=== PATIENT | female | born 1945 | race Caucasian/White ===

== ENCOUNTER 2016-05-09 10:35 | Emergency (ER) | payer OTHER, MEDICARE ==
--- NOTE | 2016-05-09 10:55 | EDPHY ---
H & P Stated Complaint: knee gave out, fell from standing position. Hit head and knee. Time Seen by Provider: 05/09/16 10:55 HPI/ROS: CHIEF COMPLAINT: Facial trauma HISTORY OF PRESENT ILLNESS: The patient presents to the ED with complaints of facial trauma, right periorbital pain and swelling after mechanical fall. Patient tripped while walking. She fell onto her right face. She did not lose consciousness. She does not take anticoagulants. She denies any neck pain, back pain, chest pain, difficulty breathing, focal numbness/weakness or additional traumatic complaints. REVIEW OF SYSTEMS: A comprehensive 10 point review of systems is otherwise negative aside from elements mentioned in the history of present illness. Source: Patient Exam Limitations: No limitations - Personal History Current Tetanus/Diphtheria Vaccine: Unsure Current Tetanus Diphtheria and Acellular Pertussis (TDAP): Unsure - Medical/Surgical History Hx Asthma: No Hx Chronic Respiratory Disease: No Hx Diabetes: No Hx Cardiac Disease: No Hx Renal Disease: No Hx Cirrhosis: No Hx Alcoholism: No Hx HIV/AIDS: No Hx Splenectomy or Spleen Trauma: No Other PMH: kidney stones - Social History Smoking Status: Never smoked - Physical Exam Exam: General Appearance: Alert, no distress Head: Soft tissue swelling and bony tenderness noted to the right periorbital tissues Eyes: Pupils equal, round, reactive, no evidence of entrapment ENT, Mouth: No hemotympanum, no oral trauma Neck: Nontender, trachea midline Respiratory: No chest wall tender, subcutaneous air, lungs clear bilaterally Cardiovascular: Regular rate and rhythm Abdomen: Abdomen is soft and nontender, pelvis stable Skin: No lacerations, No abrasion Back: No midline T/L/S pain Extremities: Nontender, full range of motion Neurological: A&Ox3, normal motor function, normal sensory exam Constitutional: Initial Vital Signs Temperature (C) 36.3 C 05/09/16 10:38 Heart Rate 65 05/09/16 10:38 Blood Pressure 198/95 H 05/09/16 10:38 O2 Delivery Mode Room Air Allergies/Adverse Reactions: No Known Allergies Allergy (Unverified 05/09/16 10:37) Home Medications: Medication Instructions Recorded Requip 05/09/16 Medical Decision Making - Diagnostics Imaging: CT head without contrast: Images reviewed by myself and discussed with radiologist Dr. Arnie Fofana. Negative for acute fracture or intracranial hemorrhage. ED Course/Re-evaluation: The patient presents to the ED with right facial pain and swelling as well as complaints of blurry vision after a mechanical fall. The patient is noted to have a GCS of 15. The patient does have evidence of bony tenderness on exam and given her acute complaints of blurry vision, a noncontrast head CT scan was ordered to exclude intracranial hemorrhage and fracture. Fortunately, the patient's CT scan demonstrates no evidence of intracranial hemorrhage or acute fracture. The patient will be discharged home with a normal neurologic examination without evidence of any acute abnormalities on her head CT scan. She is advised to ice the area of swelling. She can use Tylenol and ibuprofen as needed for pain. Differential Diagnosis: Differential diagnosis considered includes intracranial hemorrhage, skull fracture, facial bone fracture, ocular entrapment Departure - Departure Disposition: Home, Routine, Self-Care Clinical Impression: Facial contusion Condition: Good Instructions: Contusion in Adults (ED) Additional Instructions: 1. Please ice area of swelling 20-30 minutes at a time 4 to 5 times a day for the next 3 days. 2. Tylenol and ibuprofen as needed for pain. 3. Please return to the ED for markedly worsening symptoms or other concerns. Referrals: Mahsa Duffy, [employer] SALES [employer]SULTANT [Primary Care Provider] - As per Instructions
[2016-05-09 12:18] VITALS: BP 179/93; PULSE 63; RESP 18; TEMP 98.4; O2SAT 93
== END 2016-05-09 12:18 | disposition home or self-care (01) ==
DX: S00.83XA Contusion of other part of head, initial encounter (principal); W01.0XXA Fall on same level from slipping, tripping and stumbling without subsequent striking against object, initial encounter; Y99.8 Other external cause status; Y93.01 Activity, walking, marching and hiking

== ENCOUNTER 2016-12-02 15:07 | Emergency (ER) | payer OTHER, MEDICARE ==
[2016-12-02 15:24] VITALS: TEMP 97.9
[2016-12-02] MEDS ORDERED: NS 500 ML IV ONE (15:40)
--- NOTE | 2016-12-02 15:45 | EDPHY ---
H & P Time Seen by Provider: 12/02/16 15:27 HPI/ROS: HPI Right lower abdominal pain. 71-year-old female by private vehicle with her . This patient complains of right mid and right lower quadrant abdominal pain which she describes as coming on in shooting waves and as a burning and itching sensation. She reports that is similar to her shingles in the past but on the right side versus the left side where she has had shingles in the past. She was sent down from the office of her primary care physician for further evaluation. She has not had any vomiting. She does have a history of gastric bypass surgery. Denies fever. No diarrhea. She denies urinary complaints. She describes the pain as being at a low level consistently and then having waves of shooting sharp pain intermittently. She denies rash. ROS: Constitutional: No fever, no chills. No weakness. Eyes: No discharge. No changes in vision. ENT: No sore throat. No nasal congestion or rhinorrhea. Respiratory: No cough. No shortness of breath. Cardiac: No chest pain, no palpitations. Gastrointestinal: As above. Genitourinary: No hematuria. No dysuria or increased frequency with urination. Musculoskeletal: No back pain. No neck pain. No myalgias or arthralgias. Skin: No rashes. Neurological: No headache. No focal weakness or altered sensation. Past medical history: Kidney stones, gastric bypass surgery, restless leg syndrome. She takes Requip for this. Social history: Nonsmoker. No alcohol. Here with her . Physical Exam: General Appearance: Alert, no distress. She appears comfortable at this time. This patient is responding to questions appropriately and in full sentences. This patient appears well-hydrated and well-nourished. Eyes: Pupils equal and round no pallor or injection. No lid edema, erythema or injection. Respiratory: There are no retractions, lungs are clear to auscultation with good air movement bilaterally. Cardiovascular: Regular rate and rhythm. No murmur. Gastrointestinal: Abdomen is soft with right lower quadrant tenderness on palpation which is mild, no masses, bowel sounds normal. No focal tenderness at McBurney's point. No Siegel sign. Neurological: Motor sensory function is grossly intact. Cranial nerves are normal. Gait is normal. Skin: Warm and dry, no rashes. Musculoskeletal: Neck is supple and nontender. Extremities are symmetrical. All joints range without pain or impingement. Psychiatric: No agitation. No depression. Database: EKG: Imaging: CT scan of abdomen and pelvis with IV contrast: No evidence of kidney stones. The appendix is well visualized and is normal. Gall stones are present there is no evidence of gallbladder pathology. The ovaries were not well visualized. No other significant findings. Results were discussed with staff radiologist Dr. Aniket Ramirez. Pelvic ultrasound: The uterus is unremarkable. The right ovary is well visualized. Normal blood flow. No pathology. Results were discussed with staff radiologist Dr. Aniket Ramirez. Procedures: Emergency department course: IV placed. She was placed on a monitor. She was started on IV normal saline with 500 cc to be given over the next hour. She declines pain medication at this time. She consents to CT imaging to evaluate for possible appendicitis as well as ovarian pathology. Urinalysis obtained. 4:35 p.m., patient given 0.5 mg of IV hydromorphone for pain. Patient is complaining of pain that is shooting, sharp and superficial on comes on intense waves just under the surface of her skin. This is consistent with a zoster outbreak. Results of blood work and urinalysis discussed with her and her . The urinalysis was positive for nitrate but otherwise unremarkable. She does not have any fever or urinary tract infection complaints. 5:45 p.m., patient re-evaluated. Results of her CT scan discussed with her and her . She again is having knee shooting pains as described above. She was given 30 mg of IV Toradol. She has no contraindications to NSAIDs. No peptic ulcer disease. No renal dysfunction. We will obtain a pelvic ultrasound to see if we can better visualize her pelvic anatomy. Her repeat abdominal exam at this time she is soft, nontender nondistended. If the ultrasound study is unremarkable I will treat her for shingles. She endorses this plan. 6:50 p.m., adults of ultrasound discussed with the patient. No evidence of rash on re-evaluation. She appears comfortable at this time. Plan will be to treat her for zoster. She was given 300 mg of oral gabapentin. She was also given 60 mg of oral prednisone. Her primary care physician has already called in a prescription for gabapentin for treatment of neuropathic pain from shingles. I will prescribe her prednisone and Valtrex. Plan will be to have her follow up with her primary care physician tomorrow for re-evaluation. The patient does feel comfortable going home with her . She can easily return to the emergency department if needed. Strict return to emergency department precautions were discussed with her and her . All of their questions were answered. She was discharged in good condition. Differential Diagnosis: The differential diagnosis on this patient includes but is not limited to shingles. Appendicitis, volvulus, bowel obstruction, ovarian torsion, diverticulitis, colitis, cholecystitis unlikely. This represents a partial list of diagnoses considered. These considerations are based on history, physical exam, past history, reassessment and diagnostic testing. Smoking Status: Never smoked Constitutional: Initial Vital Signs Temperature (C) 36.6 C 12/02/16 15:22 Heart Rate 68 12/02/16 15:22 Respiratory Rate 18 12/02/16 15:22 Blood Pressure 184/83 H 12/02/16 15:22 O2 Sat (%) 96 12/02/16 15:22 O2 Delivery Mode Room Air O2 (L/minute) 2 Allergies/Adverse Reactions: No Known Allergies Allergy (Unverified 05/09/16 10:37) Home Medications: Medication Instructions Recorded Requip 05/09/16 Valacyclovir HCl [Valtrex] 1,000 mg PO TID #21 tab 12/02/16 predniSONE [prednisone 20mg (RX)] 60 mg PO DAILY #9 tab 12/02/16 Medical Decision Making - Diagnostics Imaging Results: Imaging Impressions Abdomen CT 12/02/16 15:41 Impression: 1. Normal appendix and mild constipation. 2. No acute inflammatory process, lymphadenopathy or mass to explain symptomatology. 3. Normal caliber mildly atherosclerotic abdominal aorta. No aneurysm. 4. Probably benign 5-mm ground glass left lower lobe pulmonary nodule. Recommend follow-up noncontrast low dose chest CT in 12 months to assure benignity. Findings discussed with Emergency Department physician, Dr. Alicia Gupta on December 02, 2016 at 5:38 p.m. Pelvic/Renal Ultrasound 12/02/16 18:05 Impression: 1. Normal right ovary. No ovarian torsion, cyst or free fluid. 2. Left ovary not visualized. 3. Normal uterus. Findings discussed with Emergency Department physician, Alicia Gupta MD at 12/02/2016 18:50. - Data Points Laboratory Results: Laboratory Results 12/02/16 15:55 12/02/16 15:55 12/02/16 12/02/16 12/02/16 15:55 15:55 15:35 WBC 8.10 10^3/uL 10^3/uL (3.80-9.50) RBC 4.40 10^6/uL 10^6/uL (4.18-5.33) Hgb 13.1 g/dL g/dL (12.6-16.3) Hct 40.6 % % (38.0-47.0) MCV 92.3 fL fL (81.5-99.8) MCH 29.8 pg pg (27.9-34.1) MCHC 32.3 g/dL L g/dL (32.4-36.7) RDW 14.5 % % (11.5-15.2) Plt Count 314 10^3/uL 10^3/uL (150-400) MPV 9.8 fL fL (8.7-11.7) Neut % (Auto) 52.2 % % (39.3-74.2) Lymph % (Auto) 34.6 % % (15.0-45.0) [place] % (Auto) 9.4 % % (4.5-13.0) Eos % (Auto) 3.2 % % (0.6-7.6) Baso % (Auto) 0.4 % % (0.3-1.7) Nucleat RBC Rel Count 0.0 % % (0.0-0.2) Absolute Neuts (auto) 4.23 10^3/uL 10^3/uL (1.70-6.50) Absolute Lymphs (auto) 2.80 10^3/uL 10^3/uL (1.00-3.00) Absolute Monos (auto) 0.76 10^3/uL 10^3/uL (0.30-0.80) Absolute Eos (auto) 0.26 10^3/uL 10^3/uL (0.03-0.40) Absolute Basos (auto) 0.03 10^3/uL 10^3/uL (0.02-0.10) Absolute Nucleated RBC 0.00 10^3/uL 10^3/uL (0-0.01) Immature Gran % 0.2 % % (0.0-1.1) Immature Gran # 0.02 10^3/uL 10^3/uL (0.00-0.10) Sodium 139 mEq/L mEq/L (134-144) Potassium 4.2 mEq/L mEq/L (3.5-5.2) Chloride 105 mEq/L mEq/L (97-110) Carbon Dioxide 23 mEq/l mEq/l (22-31) Anion Gap 11 mEq/L mEq/L (8-16) BUN 21 mg/dL mg/dL (7-23) Creatinine 0.8 mg/dL mg/dL (0.6-1.0) Estimated GFR > 60 Glucose 77 mg/dL mg/dL (70-100) Calcium 9.0 mg/dL mg/dL (8.5-10.4) Total Bilirubin 0.7 mg/dL mg/dL (0.1-1.4) Conjugated Bilirubin 0.5 mg/dL mg/dL (0.0-0.5) Unconjugated Bilirubin 0.2 mg/dL mg/dL (0.0-1.1) AST 18 IU/L IU/L (14-46) ALT 33 IU/L IU/L (9-52) Alkaline Phosphatase 84 IU/L IU/L (38-126) Total Protein 7.0 g/dL g/dL (6.3-8.2) Albumin 3.8 g/dL g/dL (3.5-5.0) Lipase 176 IU/L IU/L (23-300) Urine Color YELLOW Urine Appearance CLOUDY Urine pH 6.0 (5.0-7.5) Ur Specific [place] 1.025 (1.002-1.030) Urine Protein NEGATIVE (NEGATIVE) Urine Ketones NEGATIVE (NEGATIVE) Urine Blood NEGATIVE (NEGATIVE) Urine Nitrate POSITIVE H (NEGATIVE) Urine Bilirubin NEGATIVE (NEGATIVE) Urine Urobilinogen 0.2 EU EU (0.2-1.0) Ur Leukocyte Esterase NEGATIVE (NEGATIVE) Urine RBC NONE SEEN /hpf /hpf (0-3) Urine WBC 1-3 /hpf /hpf (0-3) Ur Epithelial Cells TRACE /lpf /lpf (NONE-1+) Urine Bacteria 4+ /hpf H /hpf (NONE SEEN) Urine Glucose NEGATIVE (NEGATIVE) Medications Given: Discontinued Medications Gabapentin (Neurontin) 300 mg PO EDNOW ONE Stop: 12/02/16 18:51 Last Admin: 12/02/16 19:02 Dose: 300 mg Hydromorphone HCl (Dilaudid) 0.5 mg IVP EDNOW ONE Stop: 12/02/16 16:43 Last Admin: 12/02/16 16:43 Dose: 0.5 mg Sodium Chloride (Ns) 500 mls @ 0 mls/hr IV EDNOW ONE; Wide Open PRN Reason: Protocol Stop: 12/02/16 15:41 Last Admin: 12/02/16 16:11 Dose: 500 mls Ketorolac Tromethamine (Toradol) 30 mg IVP EDNOW ONE Stop: 12/02/16 18:06 Last Admin: 12/02/16 18:09 Dose: 30 mg Ondansetron HCl (Zofran) 4 mg IVP EDNOW ONE Stop: 12/02/16 16:38 Last Admin: 12/02/16 16:42 Dose: 4 mg Prednisone (Prednisone) 60 mg PO EDNOW ONE Stop: 12/02/16 18:52 Last Admin: 12/02/16 19:02 Dose: 60 mg Departure - Departure Disposition: Home, Routine, Self-Care Clinical Impression: Abdominal pain, Possible shingles Condition: Good Instructions: Shingles (ED), Abdominal Pain (ED) Additional Instructions: Read and follow provided instructions. Follow-up with your primary care physician tomorrow for re-evaluation. They will have access to the tests we have done here tonight. I will start you on a short course of prednisone. Ask your primary care physician to continue you on a more prolonged course of prednisone with a taper as needed. Take medication as prescribed. Ibuprofen dosin mg every 6 hours with meals for the next 3 days only. Return to the emergency department for worsening pain, fever, vomiting, blood in stool or other serious concerns. Referrals: Mahsa Duffy TELEPHONE MECHANIC [Primary Care Provider] - As per Instructions Prescriptions: predniSONE [prednisone 20mg (RX)] 60 mg PO DAILY #9 tab Valacyclovir HCl [Valtrex] 1,000 mg PO TID #21 tab
[2016-12-02] MEDS ORDERED: IOPAMIDOL (ISOVUE-300) 100 ML BTL ONE (15:47)
[2016-12-02 15:57] LABS: COLOR YELLOW; LEUKOCYTE ESTERASE,URINE NEGATIVE (NEGATIVE); NITRITE,URINE POSITIVE (NEGATIVE)
[2016-12-02 16:04] LABS: % IMMATURE GRANULYOCYTES 0.2 % (0.0-1.1); ABSOLUTE IMMATURE GRANULOCYTES 0.02 10^3/uL (0.00-0.10); ADD DIFF? NO; ADD MORPH? NO; ADD SCAN? NO; ATYPICAL LYMPHOCYTE FLAG 0 (0-99); FRAGMENT RBC FLAG 0 (0-99); HEMATOCRIT 40.6 % (38.0-47.0); HEMOGLOBIN 13.1 g/dL (12.6-16.3); LEFT SHIFT FLG 0 (0-99); LIPEMIA HEMOLYSIS FLAG 80 (0-99); MEAN CELL HEMOGLOBIN 29.8 pg (27.9-34.1); MEAN CELL HEMOGLOBIN CONCENTR. 32.3 g/dL (32.4-36.7); MEAN CELL VOLUME 92.3 fL (81.5-99.8); MEAN PLATELET VOLUME 9.8 fL (8.7-11.7); PLATELET CLUMPS FLAG 0 (0-99); PLATELET COUNT 314 10^3/uL (150-400); RED CELL DISTRIBUTION WIDTH 14.5 % (11.5-15.2)
[2016-12-02 16:19] LABS: BACTERIA 4+ /hpf (NONE SEEN); RBC,URINE NONE SEEN /hpf (0-3)
[2016-12-02 16:20] LABS: ALANINE AMINOTRANSFERASE 33 IU/L (9-52); ALBUMIN 3.8 g/dL (3.5-5.0); ALKALINE PHOSPHATASE 84 IU/L (38-126); ANION GAP 11 mEq/L (8-16); ASPARTATE AMINOTRANSFERASE 18 IU/L (14-46); BILIRUBIN,TOTAL 0.7 mg/dL (0.1-1.4); BILIRUBIN-CONJUGATED 0.5 mg/dL (0.0-0.5); BILIRUBIN-UNCONJUGATED 0.2 mg/dL (0.0-1.1); CARBON DIOXIDE 23 mEq/l (22-31); CHLORIDE 105 mEq/L (97-110); CREATININE 0.8 mg/dL (0.6-1.0); GLOMERULAR FILTRATION RATE > 60; GLUCOSE 77 mg/dL (70-100); POTASSIUM 4.2 mEq/L (3.5-5.2); SODIUM 139 mEq/L (134-144)
[2016-12-02] MEDS ORDERED: ONDANSETRON 4 MG/2 ML VIAL IVP ONE (16:37)
[2016-12-02] MEDS ORDERED: HYDROmorphONE/DILAUDID 1 MG/ML INJ ONE (16:38)
[2016-12-02] MEDS ORDERED: HYDROmorphONE/DILAUDID 1 MG/ML INJ IVP ONE (16:42)
[2016-12-02] MEDS ORDERED: KETOROLAC 30 MG/1 ML SDV IVP ONE (18:05)
[2016-12-02] MEDS ORDERED: KETOROLAC 30 MG/1 ML SDV ONE (18:05)
[2016-12-02] MEDS ORDERED: GABAPENTIN 300 MG CAP PO ONE (18:50)
[2016-12-02] MEDS ORDERED: predniSONE 20 MG TAB PO ONE (18:51)
[2016-12-02 19:19] VITALS: BP 158/88; PULSE 62; RESP 18; O2SAT 94
== END 2016-12-02 19:19 | disposition home or self-care (01) ==
LOC: CED 15:07
DX: R10.31 Right lower quadrant pain (principal); E86.9 Volume depletion, unspecified
CPT/HCPCS: 74177; 76856; 96361; 96374; 96375; 99285; J1170; J1885; J2405; Q9967; 80048-PO; 80076-PO; 81003-PO; 81015-PO; 83690-PO; 85025-PO; G0463-PO

== ENCOUNTER → 2017-12-05 | Outpatient (CLI) | payer OTHER, MEDICARE | LOC: BHCLAF 09:15 | PROVIDERS: ATTEND Internal Medicine Cardiovascular Disease | DX: R01.1 Cardiac murmur, unspecified (principal) | CPT/HCPCS: 93306-PO ==

== ENCOUNTER → 2018-05-18 | Outpatient (CLI) | payer OTHER, MEDICARE | LOC: FIMAGING 17:27 | PROVIDERS: ATTEND Physician Assistant | DX: M25.551 Pain in right hip (principal); M53.3 Sacrococcygeal disorders, not elsewhere classified; M51.36 Other intervertebral disc degeneration, lumbar region ==